=== PATIENT | female | born 1955 | race Caucasian/White ===

== ENCOUNTER 2016-11-01 17:36 | Emergency (ER) | payer OTHER ==
[2016-11-01 17:51] VITALS: BP 114/71
--- NOTE | 2016-11-01 18:06 | UC ---
Skin Complaint HPI - HPI Summary HPI Summary: tender red, swollen area on cheek below right eye. No injury. Started 3d ago, felt like a deep pimple. Gradually the lump resolved but then she was left with a growing area of redness and swelling on the surface. No fever or vomiting. No drainage. No history of similar problem. - History of Current Complaint Chief Complaint: UCSkin Time Seen by Provider: 11/01/16 17:53 Stated Complaint: SKIN COMPLAINT Hx Obtained From: Patient Hx Last Menstrual Period: "long ago." Onset/Duration: Gradual Onset, Lasting Days - 3 Timing: Constant Onset Severity: Mild Current Severity: Mild Location: Face - right cheek Character: Swelling, Pain, Redness Aggravating: Touch Alleviating: Nothing Associated Signs & Symptoms: Positive: Negative. Negative: Vomiting, Fever - Allergy/Home Medications Allergies/Adverse Reactions: Allergies Allergy/AdvReac Type Severity Reaction Status Date / Time No Known Allergies Allergy Verified 11/01/16 17:51 Review of Systems Constitutional: Negative Skin: Other - redness, swelling Eyes: Negative ENT: Negative Respiratory: Negative Cardiovascular: Negative Gastrointestinal: Negative Genitourinary: Negative Motor: Negative Neurovascular: Negative Musculoskeletal: Negative Neurological: Negative Psychological: Negative All Other Systems Reviewed And Are Negative: Yes PMH/Surg Hx/FS Hx/Imm Hx Previously Healthy: Yes Endocrine History Of: Denies: Diabetes, Thyroid Disease, Hyperthyroidism, Hypothyroidism, Dyslipidemia Cardiovascular History Of: Denies: Cardiac Disorders, Hypertension, Pacemaker/ICD, Myocardial Infarction , Congestive Heart Failure, Atrial Fibrillation, Deep Vein Thrombosis, Bleeding Disorders Respiratory History Of: Denies: COPD, Asthma, Bronchitis, Pneumonia, Pulmonary Embolism GI/ History Of: Denies: Gastroesophageal Reflux, Ulcer, Gastrointestinal Bleed, Gall Bladder Disease, Kidney Stones, Diverticulitis, Renal Disease, Urosepsis Neurological History Of: Denies: TIA, CVA, Dementia, Seizures, Migraine Psychological History Of: Denies: Anxiety, Depression, Bipolar Disorder, Schizophrenia, Post Traumatic Stress Disorder Cancer History Of: Denies: Lung Cancer, Colorectal Cancer, Breast Cancer, Prostate Cancer, Cervical Cancer Other History Of: Negative For: HIV, Hepatitis B, Hepatitis C, Anticoagulant Therapy - Surgical History Surgical History: Yes Surgery Procedure, Year, and Place: RIGHT TOTAL KNEE WITH FEMUR RE-SECT--1997, due to bone cancer. RESECT OF MELANOMA--1999 - Family History Known Family History: Negative: Cardiac Disease, Hypertension - Social History Occupation: Retired Lives: With Family Alcohol Use: Rare Substance Use Type: None Smoking Status (MU): Never Smoked Tobacco - Immunization History Most Recent Influenza Vaccination: [id number] Physical Exam Triage Information Reviewed: Yes Appearance: Well-Appearing, No Pain Distress, Well-Nourished Vital Signs: Initial Vital Signs Temp 98.3 F 11/01/16 17:47 Pulse 55 11/01/16 17:47 Resp 17 11/01/16 17:47 BP 114/71 11/01/16 17:47 Pulse Ox 100 11/01/16 17:47 Vital Signs Reviewed: Yes Eye Exam: Normal ENT Exam: Normal Neck exam: Normal Respiratory Exam: Normal Cardiovascular Exam: Normal Musculoskeletal Exam: Normal Neurological Exam: Normal Psychological Exam: Normal Skin Exam: Other - right cheek with redness, slight swelling, tenderness below right eye. Not involving eyelid. No stye. Conjunctiva clear. Course/Dx - Differential Diagnoses - Skin Complaint Differential Diagnoses: Abscess, Cellulitis, Contact Dermatitis - Diagnoses Provider Diagnoses: facial cellulitis Discharge - Discharge Plan Condition: Stable Disposition: HOME Prescriptions: Cephalexin CAP* [Keflex CAP*] 500 mg PO TID #21 cap Patient Education Materials: Cellulitis (ED) Referrals: Dorys Johnson [Primary Care Provider] -
== END 2016-11-01 18:13 | disposition home or self-care (01) ==
LOC: UCCORT 17:36
DX: L03.211 Cellulitis of face (principal); B96.89 Other specified bacterial agents as the cause of diseases classified elsewhere; Z85.830 Personal history of malignant neoplasm of bone; Z85.820 Personal history of malignant melanoma of skin
CPT/HCPCS: 99212; G0463

== ENCOUNTER 2018-02-03 15:26 | Emergency (ER) | payer OTHER ==
[2018-02-03 15:45] VITALS: BP 128/78
--- NOTE | 2018-02-03 16:02 | UC ---
Skin Complaint HPI - HPI Summary HPI Summary: PT STATES SHE AWOKE WITH AN ITCHY RASH ABOUT 2AM. SHE HAS TAKEN 3 DOSES OF BENADRYL WITHOUT MUCH RELIEF. SHE DENIES NEW SOAPS, FOODS, DETERGENTS, CURRENT/ RECENT ILLNESS; HOWEVER, SHE DID JUST START A LAVENDER LOTION. NO FEVER, COUGH, SOB, N/V/D. - History of Current Complaint Chief Complaint: UCRash Time Seen by Provider: 02/03/18 15:55 Stated Complaint: HIVES Hx Obtained From: Patient Hx Last Menstrual Period: "long ago." Onset/Duration: Gradual Onset Timing: Constant Pain Intensity: 0 Location: Generalized Character: Pruritus, Hives Aggravating Factor(s): Nothing Alleviating Factor(s): Nothing Associated Signs & Symptoms: Positive: Rash. Negative: Nausea, Vomiting, Difficulty Breathing, Fever, Cough, Wheezing, Hoarseness, Throat Tightening - Allergy/Home Medications Allergies/Adverse Reactions: Allergies Allergy/AdvReac Type Severity Reaction Status Date / Time No Known Allergies Allergy Verified 11/01/16 17:51 Home Medications: Home Medications Calcium Carbonate [Calcium/C/D] 1 chw PO DAILY 02/03/18 [History Confirmed 02/03] Ibandronate TAB(NF) [Boniva(NF)] 150 mg PO DAILY 02/03/18 [History Confirmed ] Multivitamins/Minerals TAB* [Theragran/minerals TAB*] 1 tab PO DAILY 02/03/18 [ History Confirmed 02/03/18] Naproxen Sodium [Aleve] 220 mg PO BID PRN 02/03/18 [History Confirmed 02/03/18] Review of Systems Constitutional: Negative Skin: Rash Eyes: Negative ENT: Negative Respiratory: Negative Cardiovascular: Negative Gastrointestinal: Negative Genitourinary: Negative Motor: Negative Neurovascular: Negative Musculoskeletal: Negative Neurological: Negative Psychological: Negative Is Patient Immunocompromised?: No All Other Systems Reviewed And Are Negative: Yes PMH/Surg Hx/FS Hx/Imm Hx - Additional Past Medical History Additional PMH: OSTEOPOROSIS Other History Of: Negative For: HIV, Hepatitis B, Hepatitis C, Anticoagulant Therapy - Surgical History Surgical History: Yes Surgery Procedure, Year, and Place: RIGHT TOTAL KNEE WITH FEMUR RE-SECT--1997, due to bone cancer. RESECT OF MELANOMA--1999 - Family History Known Family History: Negative: Cardiac Disease, Hypertension - Social History Occupation: Employed Full-time Lives: With Family Alcohol Use: Rare Substance Use Type: None Smoking Status (MU): Never Smoked Tobacco - Immunization History Most Recent Influenza Vaccination: [id number] Vaccination Up to Date: Yes Physical Exam Triage Information Reviewed: Yes Appearance: Well-Appearing Vital Signs: Initial Vital Signs Temp 98.5 F 02/03/18 15:38 Pulse 87 02/03/18 15:38 Resp 12 02/03/18 15:38 BP 128/78 02/03/18 15:38 Pulse Ox 100 02/03/18 15:38 Vital Signs Reviewed: Yes Eyes: Positive: Conjunctiva Clear ENT: Positive: Pharynx normal, TMs normal. Negative: Nasal congestion, Nasal drainage Neck: Positive: Supple, Nontender, No Lymphadenopathy Respiratory: Positive: Lungs clear, Normal breath sounds Cardiovascular: Positive: RRR, No Murmur Abdomen Description: Positive: Nontender, No Organomegaly, Soft Bowel Sounds: Positive: Present Musculoskeletal: Positive: ROM Intact Neurological: Positive: Alert Psychological: Positive: Age Appropriate Behavior Skin: Positive: rashes - RAISED PINK WHEELS THAT HAILY. NOT PETECHIAL AND DOES HAILY. Course/Dx - Course Course Of Treatment: no concern for anaphylaxis or Juanito Manpreet syndrom. c/w urticaria. pt agrees to stop all use of lavender and already washed it off. will tx with antihistamines(benadryl and pepcid) plus steroids and close f/u pcp for recheck. agrees to go to ER for any changes or worsening. - Diagnoses Provider Diagnoses: urticaria Discharge - Sign-Out/Discharge Documenting (check all that apply): Discharge - Discharge Plan Condition: Stable Disposition: HOME Prescriptions: predniSONE TAB* [Deltasone TAB*] 40 mg PO DAILY #8 tab Patient Education Materials: Urticaria (ED) Referrals: Dorys Johnson [Primary Care Provider] - 3 Days Additional Instructions: TAKE BENADRYL 50 MG EVERY 6 HOURS UNTIL REACTION RESOLVES. TAKE PEPCID OVER THE COUNTER 20MG TWICE DAILY DAILY UNTIL REACTION RESOLVES. - Billing Disposition and Condition Condition: STABLE Disposition: HOME
[2018-02-03] MEDS ORDERED: Famotidine TAB* 20 MG PO ONE (16:03)
[2018-02-03] MEDS ORDERED: predniSONE TAB* 20 MG PO ONE (16:03)
== END 2018-02-03 16:15 | disposition home or self-care (01) ==
LOC: UCCORT 15:26
DX: L50.9 Urticaria, unspecified (principal)
CPT/HCPCS: 99212; A9270-GY; G0463; J7512

== ENCOUNTER 2018-02-05 08:50 | Emergency (ER) | payer OTHER ==
[2018-02-05] MEDS ORDERED: methylPREDNISolone 125 MG* 2 ML VIAL ONE (09:18)
[2018-02-05] MEDS ORDERED: methylPREDNISolone SOD 40 MG* 1 ML VIAL IV ONE (09:26)
[2018-02-05] MEDS ORDERED: Albuterol/Ipratropium NEB.SOL* Albuterol 2.5 MG/Ipratropium 0.5 MG 3 ML INH ONE (09:27)
[2018-02-05] MEDS ORDERED: NS 0.9% 1000 ML* 1,000 ML IV ONE (09:27)
--- NOTE | 2018-02-05 10:29 | UC ---
General HPI - HPI Summary HPI Summary: 62 yo lady c/o worsening allergic reaction. A couple days ago (Sat, today is Tues), she spread lavender on her skin, s/p a shower. Approx one hour afterwards, developed hives, itching. Seen in [facility] 02/03/18, started benadryl, pepcid, prednisone 40mg po qd. Took all these medications most recently this morning approx 7am. Has 2 more days' prednisone. Reports that the medication helps, but the benadryl wears off prior to the follow on dose. This am arrived to work approx 8am, + lip swelling, throat tightening, itchy worse. No sob / cp / palpitations. No fever. Denies known new exposure. - History of Current Complaint Chief Complaint: UCAllergicReaction Stated Complaint: POSS ALLERGIC REACTION Time Seen by Provider: 02/05/18 09:26 Hx Obtained From: Patient Hx Last Menstrual Period: "long ago." Pain Intensity: 0 - Allergy/Home Medications Allergies/Adverse Reactions: Allergies Allergy/AdvReac Type Severity Reaction Status Date / Time lavender suspected Allergy Hives Uncoded 02/05/18 09:14 Home Medications: Home Medications Famotidine TAB* [Pepcid 20 MG TAB*] 20 mg PO DAILY 02/05/18 [History Confirmed 02/05/18] diphenhydrAMINE HCl [Benadryl Allergy] 50 mg PO SEE INSTRUCTIONS 02/05/18 [ History Confirmed 02/05/18] PMH/Surg Hx/FS Hx/Imm Hx Previously Healthy: Yes Other History Of: Negative For: HIV, Hepatitis B, Hepatitis C, Anticoagulant Therapy - Surgical History Surgical History: Yes Surgery Procedure, Year, and Place: RIGHT TOTAL KNEE WITH FEMUR RE-SECT--1997, due to bone cancer. RESECT OF [place]--1999 - Family History Known Family History: Negative: Cardiac Disease, Hypertension - Social History Alcohol Use: Rare Substance Use Type: None Smoking Status (MU): Never Smoked Tobacco - Immunization History Most Recent Influenza Vaccination: [id number] Vaccination Up to Date: Yes Review of Systems Constitutional: Negative Skin: Rash Eyes: Negative ENT: Sore Throat Respiratory: Negative Cardiovascular: Negative Gastrointestinal: Negative Genitourinary: Negative Motor: Negative Neurovascular: Negative Musculoskeletal: Negative Neurological: Negative Psychological: Negative Is Patient Immunocompromised?: No All Other Systems Reviewed And Are Negative: Yes Physical Exam Triage Information Reviewed: Yes Appearance: Well-Nourished - thin. Looks tired. Conversing in full sentances. NAD. Nontoxic appearance. Vital Signs: Initial Vital Signs Temp 98.6 F 02/05/18 08:57 Pulse 86 02/05/18 08:57 Resp 18 02/05/18 08:57 BP 128/80 02/05/18 08:57 Pulse Ox 100 02/05/18 08:57 Vital Signs Reviewed: Yes Eye Exam: Normal - grossly normal. A little watery. ENT Exam: Other - TM's cooper, dull. Ororph. benign. Airway patent. No stridor. Lips ok (at the time of exam, not overly swollen). Neck exam: Normal Neck: Positive: Supple, Nontender Respiratory Exam: Normal - mild exp wheeze Respiratory: Positive: Chest non-tender, Lungs clear, Normal breath sounds, No respiratory distress Cardiovascular Exam: Normal Cardiovascular: Positive: RRR, No Murmur, Pulses Normal, Brisk Capillary Refill Abdominal Exam: Normal Abdomen Description: Positive: Nontender Musculoskeletal Exam: Normal - gait steady Neurological Exam: Normal - grossly nonfocal Psychological Exam: Normal - conversing easily and appropriately Skin Exam: Other - scattered hives. Skin intact. Course/Dx - Course Course Of Treatment: Reference #: [id number]. Received approx 500mg NS, feels better. Added 80mg IV solumedrol. Duoneb x 1. Feels better s/p the above interventions. Reviewed coa / tx plan with Ms. Suleman Pedroza. Will increase prednisone taper. Add diazepam prn. Epinephrine not needed today. She will f/ u pcp. Will seek immediate medical attention worse / new problems. Reviewed allergy precautions. Questions as posed answered to the best of my ability. - Differential Dx - Multi-Symptom Provider Diagnoses: Acute allergic reaction with hives Discharge - Sign-Out/Discharge Documenting (check all that apply): Discharge - Discharge Plan Condition: Stable Disposition: HOME Prescriptions: diazePAM [Diazepam] 5 mg PO Q8H PRN #5 tablet MDD 3 PRN Reason: Allergy Symptoms predniSONE TAB* [Deltasone TAB*] 10 mg PO DAILY #20 tab Patient Education Materials: Urticaria (ED), General Allergic Reaction (ED) Referrals: Dorys Johnson [Primary Care Provider] - Additional Instructions: Drink plenty of fluids. Take 40mg by mouth prednisone late afternoon / early evening. Tomorrow: take 60mg prednisone (6 tablets), divided into two separate doses ( approx 12 hours apart) of 30mg (3 tab). DAy 3, 4: Divide the 40mg prednisone (4 tablets), likewise into two separate doses (2 tab). From Day 5 onwards, you may take the prednisone dose all at one time, preferably morning or afternoon. Double rinse clothes. Hypoallergenic soap and laundry soap. Avoid hot showers. Please schedule a follow up appointment with your primary care physician, early next week. Please seek medical attention for worse or new problems. - Billing Disposition and Condition Condition: STABLE Disposition: HOME
[2018-02-05 11:29] VITALS: BP 116/75
== END 2018-02-05 11:05 | disposition home or self-care (01) ==
LOC: UCCORT 08:50
DX: L50.9 Urticaria, unspecified (principal); T49.8X5A Adverse effect of other topical agents, initial encounter; Y92.9 Unspecified place or not applicable
CPT/HCPCS: 96361; 96374; 99213; A9270-GY; G0463; J2920; J2930

== ENCOUNTER 2018-04-15 15:54 | Emergency (ER) | payer OTHER ==
[2018-04-15 16:33] VITALS: BP 139/79
--- NOTE | 2018-04-15 16:52 | UC ---
Knee Pain HPI - HPI Summary HPI Summary: Patient presents to urgent care with her . Patient states at 3:30 she was leaving work. Patient states her sweater fell off of her purse, she fell causing full function of her right knee. Patient with persistent pain lateral inferior margin of her right knee since. 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 Patient states her surgery was done in [place]. Patient states she disjointedness followed by specialist at [facility]. Patient states has never had any difficulty of problems with this. Patient states she took 2 Aleve and did apply ice. Patient states progressively some edema to the inferior margin of her knee and pain so she came to have it evaluated. Patient denies any weakness in her ankle but states some paresthesias diffusely across her toes. No bleeding. No open wounds. Patient denies any other injuries related to a fall. Did not strike her head. No neck or back pain. no right hip pain. Pt has intermittently had left hip bursitis Pt's medications reviewed this visit - History of Current Complaint Chief Complaint: UCLowerExtremity Stated Complaint: RIGHT KNEE INJURY S/P FALL Time Seen by Provider: 04/15/18 16:32 Hx Obtained From: Patient Hx Last Menstrual Period: "long ago." ?: No Onset/Duration: Sudden Onset Severity Initially: Moderate Severity Currently: Moderate Pain Intensity: 8 Pain Scale Used: 0-10 Numeric Character: Throbbing Aggravating Factor(s): Movement, Weight Bearing Associated Signs And Symptoms: Positive: Swelling, Tingling. Negative: Bruising , Numbness Able to Bear Weight: Yes - with pain, favring right - Allergies/Home Medications Allergies/Adverse Reactions: Allergies Allergy/AdvReac Type Severity Reaction Status Date / Time lavender suspected Allergy Hives Uncoded 04/15/18 16:33 PMH/Surg Hx/FS Hx/Imm Hx Previously Healthy: Yes Other History Of: Negative For: HIV, Hepatitis B, Hepatitis C, Anticoagulant Therapy - Surgical History Surgical History: Yes Surgery Procedure, Year, and Place: RIGHT TOTAL KNEE WITH FEMUR RE-SECT--1997, due to bone cancer. RESECT OF MEL[place]OMA--1999 - Family History Known Family History: Negative: Cardiac Disease, Hypertension - Social History Occupation: Employed Full-time - public health nurse Alcohol Use: Occasionally Substance Use Type: None Smoking Status (MU): Never Smoked Tobacco - Immunization History Most Recent Influenza Vaccination: 2510-6343 Vaccination Up to Date: Yes Review of Systems Constitutional: Negative Skin: Negative Motor: Other - right knee pain All Other Systems Reviewed And Are Negative: Yes Physical Exam - Summary Physical Exam Summary: Vital Signs Reviewed: Yes A+Ox3, no distress Eyes: Conjunctiva Clear ENT: Hearing grossly normal neck: supple Respiratory: Positive: No respiratory distress, No accessory muscle use Cardiovascular: skin color reflect adequate perfusion 2+DP, PT CBT , 2 sec Musculoskeletal: No pain palp c spine Full AROM - SLE with discomfort prox tibia. + flexion limited 45 second to pain full flex/ext ankle + great toe extension Neurological: Positive: Alert, ambulatory without difficulty Psychological: Positive: Normal Response To Family Skin: Positive: no rash, no ecchymosis mild edema inferior aspect of knee, + TTP prox. lateral aspect skin intact Triage Information Reviewed: Yes Vital Signs: Initial Vital Signs Temp 98.2 F 04/15/18 16:25 Pulse 67 04/15/18 16:25 Resp 17 04/15/18 16:25 BP 139/79 04/15/18 16:25 Pulse Ox 100 04/15/18 16:25 Diagnostics - Radiology No standard instances Xray Interpretation: Positive (See Comments) - Patient Name: GAVIOTA HEIN Medical Record#: [id number] Ordering Physician: Regi Case MD Acct.#: [id number] : 1955 Age: 63 Sex: F [facility]: [facility] Exam Date: 04/15/181653 ADM Status: REG ER Order Information: KNEE RIGHT 4+ VWS Accession Number : [id number] CPT: 50670 ADDENDUM On the lateral view there is cortical discontinuity beginning at the anterior proximal tibia with a lucent line extending superiorly to the proximal articulating surface of the tibia just below the tibial prosthesis. On the AP view there is faint cortical discontinuity seen at approximately the same level along the medial proximal margin of the tibia. Radiographic findings could be compatible with a nondisplaced medial tibial plateau fracture abutting the tibial prosthesis. Imaging findings discussed with Dr. Case over the telephone at 1740 hours on April 15, 2018. < Electronically signed by Omar Sarmiento MD in OV>04/15/18 0315 Dictated by: Omar Sarmiento MD Dictated Date/Time:04/15/181742 Transcribed Date/Time: 1738 Copy to: Regi Case MD; Dorys Johnson NP INDICATION: Pain and swelling at right knee after a fall COMPARISON: None TECHNIQUE: 6 view radiograph of the right knee. FINDINGS: There is a long prosthesis replacing the distal right femur that is anatomically aligned with a proximal right tibial prosthesis. There is a mild to moderate joint effusion seen on the lateral view. There is no definite periprostatic fracture or loosening. At the proximal metaphysis of the right tibia there is lucency overlying a sclerotic portion of the medullary cavity (perhaps intramedullary "cement"). IMPRESSION: 1. The right distal femur and knee prostheses appear to be anatomically aligned. 2. Mild to moderate suprapatellar joint effusion. 3. Lucency in the sclerotic material overlying the proximal right tibial medullary cavity that is presumably medullary bone cement. This could represent fluid or air of unknown chronicity due to the lack of prior images for comparison. If the patient's symptoms persist, follow-up imaging is recommended. <Electronically signed by Omar Sarmiento MD in OV> 04/15/181722 Dictated By: Omar Sarmiento MD 1 of 2 Re-Evaluation - Re-Evaluation First Eval Comment: I spent prolonged time reviewed images with pt and her . Pt does not want to go to the ED as, if surgery was indicated, would want consultation with ortho in [facility]. I offered to attempt contact with her orthopedic but given afterhours -pt declined. Pt has previously been recommended provider at [facility] and is aware of Dr. Blevins but no local ortho contact. After discussion of options pt will mostly like request appt with Dr. Chavira as she would like to stay local and get recommendations. Will also contact her orthopedic doc ini [facility]. Pt given CD of images. Pt given very strick non-weight bearing instructions, walter wrap, knee immobilizer and crutches. reviewed Aleve precautions. APAP. pt and SO comfortable and in agreement with plan Knee Pain Course/Dx - Course Course Of Treatment: Pt presents with pain in right knee s/p mechanical slip and fall. Pt with prosthetic in right knee 20 years ago s/p osteosarcoma. Pt with pain in anterior, lateral knee and prox tibia. No crepitus. Mild edema. no open wounds. Pt with discomfort with flexion > 45 degrees. Pt is followed by an oncology orthopedic surgeon at [facility]. Will ice, APAP - pt declined narcotic - imaging - Differential Dx/Diagnosis Provider Diagnoses: proximal tibia fracture Discharge - Sign-Out/Discharge Documenting (check all that apply): Discharge/Admit/Transfer - Discharge Plan Condition: Stable Disposition: HOME Prescriptions: Pantoprazole TAB (NF) [Protonix TAB (NF)] 40 mg PO DAILY #30 tab Patient Education Materials: Leg Fracture (ED) Referrals: Constantino Chavira MD [Medical Doctor] - Shiraz Blevins MD [Medical Doctor] - Dorys Johnson [Primary Care Provider] - Dhara Ha MD [Medical Doctor] - Additional Instructions: - Wear knee immobilizer at all times until you are seen in follow-up by an nurse orthopedic - Do not bare weight on this leg - use crutches at all times - Okay to take Aleve twice daily for pain. It is also okay to take Tylenol, 650 mg, every 6 hours for pain. He should take Aleve with food. You have been given a prescription for Protonix. It's recommended to take this as a stomach protectant while taking Aleve. - Contact your orthopedic provider tomorrow. You can also contact the orthopedic referral providers tomorrow to schedule follow-up appointment. You have been given copies of the image disks that you may bring to any appointment not affiliated with [facility]. -Elevate your leg to help with swelling and pain. - Okay to apply ice (wrapped in a towel) 20 minutes at a time 3-4 times a day for swelling and pain - Contact your orthopedic provider [facility] with any questions or concerns - Billing Disposition and Condition Condition: STABLE Disposition: Home
[2018-04-15] MEDS ORDERED: Acetaminophen TAB* 325 MG PO ONE (16:54)
--- NOTE | 2018-04-15 17:26 | RAD ---
INDICATION: Pain and swelling at right knee after a fall COMPARISON: None TECHNIQUE: 6 view radiograph of the right knee. FINDINGS: There is a long prosthesis replacing the distal right femur that is anatomically aligned with a proximal right tibial prosthesis. There is a mild to moderate joint effusion seen on the lateral view. There is no definite periprostatic fracture or loosening. At the proximal metaphysis of the right tibia there is lucency overlying a sclerotic portion of the medullary cavity (perhaps intramedullary "cement"). IMPRESSION: 1. The right distal femur and knee prostheses appear to be anatomically aligned. 2. Mild to moderate suprapatellar joint effusion. 3. Lucency in the sclerotic material overlying the proximal right tibial medullary cavity that is presumably medullary bone cement. This could represent fluid or air of unknown chronicity due to the lack of prior images for comparison. If the patient's symptoms persist, follow-up imaging is recommended.
== END 2018-04-15 18:22 | disposition home or self-care (01) ==
LOC: UCCORT 15:54
DX: S82.101A Unspecified fracture of upper end of right tibia, initial encounter for closed fracture (principal); W01.0XXA Fall on same level from slipping, tripping and stumbling without subsequent striking against object, initial encounter; Z85.830 Personal history of malignant neoplasm of bone; Z96.651 Presence of right artificial knee joint; Y92.9 Unspecified place or not applicable
CPT/HCPCS: 99213; A9270-GY; G0463